=== PATIENT | female | born 1935 | race Caucasian/White ===

== ENCOUNTER → 2016-07-17 | Outpatient (CLI) | payer MEDICARE, OTHER ==
--- NOTE | 2016-07-17 10:20 | USB ---
Reason for exam: clinical finding. Indicated problem(s): difficult physical exam in both breasts. Bloody discharge in the left breast. Physical Findings: Nurse Summary: nipple discharge right breast x 6 weeks, clear, scant, noted-small amount dried bloody discharge on bandaid covering nipple (dw). US Breast BILAT Right breast ultrasound including all four quadrants, the retroareolar region and axilla demonstrates a 0.6 x 0.8 x 0.4cm irregular, solid, hypoechoic lesion at 12 o'clock for which a biopsy is recommended and a 0.5 x 0.9 x 0.3cm irregular, solid, hypoechoic lesion at 4 o'clock for which a biopsy is recommended. Left breast ultrasound including all four quadrants, the retroareolar region and axilla demonstrates a 0.5 x 0.5 x 0.3cm oval, cystic lesion at 9 o'clock. These results were verbally communicated with the patient and result sheet given to the patient on 07/17/16. ASSESSMENT: Suspicious, BI-RAD 4 RECOMMENDATION: Ultrasound core biopsy of the right breast. Called Dr. Hopkins with mammographic findings and Rizwana stated to schedule procedure. Biopsy scheduled for 07/30/16 at 1:30. PRELIMINARY REPORT CALLED AND FAXED TO DR. HOPKINS ON 07/17/16 AT 300/TP.
== END ==
LOC: RADUSWWP 08:05
PROVIDERS: ATTEND Surgery
DX: N64.52 Nipple discharge (principal)

== ENCOUNTER → 2016-07-30 | Day surgery (SDC) | payer MEDICARE, OTHER ==
[~2016-07-30] MED LIST: BACITRACIN OINT 1 EACH PACKET TOPICAL ONE; SODIUM BICARB 4% 5 ML VIAL (0.48 MEQ/ML) ONE
--- NOTE | 2016-07-30 14:49 | USB ---
Ultrasound-guided core biopsy of 2 right-sided breast lesions CLINICAL HISTORY: 12:00 and 4:00 right breast nodules requested for biopsy. FINDINGS: The procedure was discussed with the patient. The risks, complications, benefits , and alternatives were discussed and any questions were answered. Informed consent was obtained. The patient was placed supine on the ultrasound table and prepped and draped in the usual sterile fashion. All elements of maximal barrier and sterile technique were utilized. Under ultrasound guidance, access into the 12:00 lesion was obtained, and 4 passes were performed. Surgical clip was placed post procedure. Subsequently, 4 passes were made into the 4:00 lesion. Surgical clip was placed post procedure. The patient was stable throughout the procedure and remained stable upon discharge from Department of Radiology. IMPRESSION: 1. Successful core biopsy of a 12:00 and 4:00 right breast nodule as requested. Pathology pending. Pathology Results: Malignant A. BREAST, RIGHT, SITE A TWELVE O'CLOCK, CORE BIOPSY: INVASIVE MAMMARY CARCINOMA WITH MUCINOUS FEATURES. SEE SURGICAL PATHOLOGY CANCER CASE SUMMARY. B. BREAST, RIGHT SITE B FOUR O'CLOCK, CORE BIOPSY: DUCTAL CARCINOMA IN SITU ( DCIS), CANNOT COMPLETELY EXCLUDE MICROINVASION. SEE SURGICAL PATHOLOGY CANCER CASE SUMMARY. Recommendation Surgical consult of the right breast. [facility]
== END ==
LOC: RADUSWWP 12:56
PROVIDERS: ATTEND Surgery
DX: C50.911 Malignant neoplasm of unspecified site of right female breast (principal); D05.11 Intraductal carcinoma in situ of right breast; Z88.0 Allergy status to penicillin
CPT/HCPCS: 88305; 88342; 88341; 19083; 19084; A4648

== ENCOUNTER → 2016-09-15 | Outpatient (CLI) | payer MEDICARE, OTHER ==
--- NOTE | 2016-09-15 12:13 | XR ---
EXAMINATION TYPE: XR chest 2V DATE OF EXAM: 09/15/2016 12:08 PM COMPARISON: None HISTORY: Shortness of breath TECHNIQUE: Frontal and lateral views of the chest are obtained. FINDINGS: Scattered senescent parenchymal changes noted. Hyperinflation compatible with COPD. No evidence for infiltrate. No evidence for atelectasis. Calcified hilar mediastinal lymph nodes. Chr onic elevation left hemidiaphragm. Heart size is stable. Mediastinal structures are stable and grossly unremarkable. No evidence for hilar prominence. Degenerative changes dorsal spine. IMPRESSION: 1. No evidence for acute pulmonary disease.
== END | disposition home or self-care (01) ==
LOC: RADXRMAIN 11:40
PROVIDERS: ATTEND Internal Medicine Critical Care Medicine
DX: R06.00 Dyspnea, unspecified (principal)
CPT/HCPCS: 71020; 94060; 99205

== ENCOUNTER 2016-10-10 14:48 | Emergency (ER) | payer MEDICARE, OTHER ==
[2016-10-10] MEDS: HYDROmorphone 1 MG/ML 1 ML SYRINGE IVP STA ×2 (16:00→18:19)
--- NOTE | 2016-10-10 16:13 | ED ---
General Adult HPI - General Chief complaint: Extremity Injury, Lower Stated complaint: Fall Time Seen by Provider: 10/10/16 15:04 Source: patient, family, EMS, RN notes reviewed Mode of arrival: EMS Limitations: physical limitation - History of Present Illness Initial comments: Patient is a pleasant 81-year-old female with history of polio and leg weakness and decreased sensation. Patient fell off of her wheelchair prior to arrival. Patient's legs slipped behind her. Patient complains of discomfort near the region of both of her knees. Patient does not ambulate. Patient denies any head injury or loss of consciousness. No neck or back pain. No chest pain or dyspnea. Patient does chronically use BiPAP secondary to the history of polio. - Related Data Home Medications Medication Instructions Recorded Confirmed Acetaminophen Tab [Tylenol Tab] 1,000 mg PO Q6HR PRN 10/08/16 10/10/16 Amitriptyline HCl [Elavil] 10 mg PO QAM 10/08/16 10/10/16 Amitriptyline HCl [Elavil] 30 mg PO HS 10/08/16 10/10/16 Ascorbic Acid [Vitamin C] 500 mg PO DAILY 10/08/16 10/10/16 Biotin 5 mg PO DAILY 10/08/16 10/10/16 Cholecalciferol [Vitamin D3] 1,000 unit PO DAILY 10/08/16 10/10/16 Quinapril HCl [Accupril] 20 mg PO DAILY@1200 10/08/16 10/10/16 Ursodiol 300 mg PO BID 10/08/16 10/10/16 metroNIDAZOLE 0.75% CREAM 1 applic TOPICAL BID 10/08/16 10/10/16 [Metrocream] traZODone HCL 50 mg PO HS 10/08/16 10/10/16 PARoxetine HCL [Paxil] 40 mg PO DAILY 10/10/16 10/10/16 Allergies Allergy/AdvReac Type Severity Reaction Status Date / Time Penicillins Allergy Swelling Verified 10/10/16 15:45 Review of Systems ROS Statement: Those systems with pertinent positive or pertinent negative responses have been documented in the HPI. ROS Other: All systems not noted in ROS Statement are negative. Constitutional: Denies: fever Eyes: Denies: eye pain ENT: Denies: ear pain Respiratory: Denies: cough Cardiovascular: Denies: chest pain Endocrine: Denies: fatigue Gastrointestinal: Denies: abdominal pain Genitourinary: Denies: dysuria Musculoskeletal: Denies: back pain Skin: Denies: rash Neurological: Denies: headache Past Medical History Past Medical History: Cancer, Hypertension, Skin Disorder, Sleep Apnea/CPAP/ BIPAP Additional Past Medical History / Comment(s): Rt breast CA,has Post Polio Syndrome Unexpected Midlife Symptoms (overwhelmed fatigue,severe muscle weakness ,muscle and jt pain,sleep disorder,cold intolerance,difficulty swallowing and breathing)-pt has card, elizabeth lift-needs someone to support head when using elizabeth lift,quadriplegia-able to use right hand, hold glass with straw and feed self,uses bipap setting 20-uses 18hrs per day,gallstones,incontinent of urine- likes to use own bed [place]-takes 2 people for turning,rosacea,had polio at age 18 and put on iron lung History of Any Multi-Drug Resistant Organisms: None Reported Past Surgical History: Hernia Repair, Tonsillectomy Additional Past Surgical History / Comment(s): ramon cataracts. elizabeth lift assist. [place] bound Additional Past Anesthesia/Blood Transfusion Reaction / Comment(s): SEE POST POLIO SYNDROME IDENTIFICATION CARD ANESTHESIA PRECAUTIONS,Pt states seen Anesthesiologist for current procedure September 2016states"Anesthesiologist stated will give local anesthesia but there is a limit to how much local anesthesia can be given and if I need some additional for pain I will be given a light anesthesia".no hx blood transfusion Past Psychological History: Anxiety, Depression Smoking Status: Never smoker Past Alcohol Use History: None Reported Past Drug Use History: None Reported - Past Family History Mother Family Medical History: Cancer Additional Family Medical History / Comment(s): breast and uterus Father Family Medical History: Cancer Additional Family Medical History / Comment(s): brain General Exam Limitations: physical limitation General appearance: alert, in no apparent distress Head exam: Present: atraumatic Eye exam: Present: normal appearance, PERRL ENT exam: Present: normal oropharynx Neck exam: Present: normal inspection. Absent: tenderness Respiratory exam: Present: normal lung sounds bilaterally Cardiovascular Exam: Present: regular rate, normal rhythm Expanded Peripheral pulses: 2+: Dorsalis Pedis (R), Dorsalis Pedis (L) GI/Abdominal exam: Present: soft. Absent: tenderness Extremities exam: Present: tenderness (Patient does have some tenderness of the right lateral ankle and right proximal tib-fib. Patient also has some tenderness left distal femur and left proximal tib-fib.), other (Exam limited. Patient has chronic decreased sensation. Patient is able to move her toes however has chronic weakness.) Back exam: Present: normal inspection Neurological exam: Present: alert, oriented X3, CN II-XII intact Psychiatric exam: Present: normal affect, normal mood Skin exam: Present: normal color Course Vital Signs 10/10/16 10/10/16 15:00 18:00 Temperature 97.4 F L Pulse Rate 108 H 120 H Respiratory 20 20 Rate Blood Pressure 153/83 144/73 O2 Sat by Pulse 92 L 92 L Oximetry - Reevaluation(s) Reevaluation #1: 10/10/16 18:50 Case was earlier discussed [facility] who will consult for Dr. Peters. Case discussed with Dr. Lynn, who will admit for medical call. Chest did call back from [facility] and stated that Dr. Peters requests transfer. Dr. Lynn is made aware. 10/10/16 18:[address] Marie at [facility] who will call back after discussing with his orthopedic trauma physician. 10/10/16 19:22 Case was discussed again with Dr. Marie a [facility], who will accept transfer. Medical Decision Making - Radiology Data Radiology results: image reviewed (Bilateral femur x-ray shows a subtrochanteric fracture of the right proximal femur. Distal left femur fracture. Bilateral tib-fib x-rays show bilateral proximal tib-fib fractures. There is also distal right tibia fracture. Cannot rule out distal right fibula fracture.) Disposition Clinical Impression: Multiple fractures of lower leg, closed Disposition: OTHER INSTITUTION NOT DEFINED Condition: Serious Referrals: Zackary Lynn MD [Primary Care Provider] - 1-2 days Time of Disposition: 19:23 - Out of Hospital Transfer - Req. Specs Out of Hospital Transfer - Requested Specifics: Other Emergency Center
--- NOTE | 2016-10-10 18:00 | XR ---
EXAMINATION TYPE: XR tibia fibula bilateral DATE OF EXAM: 10/10/2016 5:41 PM COMPARISON: NONE HISTORY: Leg pain TECHNIQUE: 4 views FINDINGS: There are transverse fractures of the proximal tibia and fibula bilaterally. There is no di slocation. There is osteopenia. There is also transverse fracture of the distal right tibia with slight impaction. There is no disloc ation. IMPRESSION: Bilateral transverse fractures of the proximal tibia and fibula. Acute transverse fractur e distal right tibia. There is probably also nondisplaced fracture distal right fibula. Osteopenia.
--- NOTE | 2016-10-10 18:01 | XR ---
EXAMINATION TYPE: XR femur bilateral DATE OF EXAM: 10/10/2016 5:41 PM COMPARISON: NONE HISTORY: Pain TECHNIQUE: 6 views FINDINGS: There is a subtrochanteric transverse fracture of the proximal right femur. There is genera lized osteopenia. There is a nondisplaced supracondylar fracture of the distal left femur. There is n o dislocation. There is a 2 cm infarct involving the distal right femur. IMPRESSION: Bilateral femoral fractures as above. No dislocation. Osteopenia.
[2016-10-10 19:44] VITALS: BP 123/69; PULSE 69; RESP 16; TEMP 97
[2016-10-10] MEDS ORDERED: HYDROmorphone 1 MG/ML 1 ML SYRINGE IVP STA (20:13)
== END 2016-10-10 20:31 | disposition other institution (70) ==
LOC: EC 14:48
DX: S72.21XA Displaced subtrochanteric fracture of right femur, initial encounter for closed fracture (principal); S82.301A Unspecified fracture of lower end of right tibia, initial encounter for closed fracture; S82.102A Unspecified fracture of upper end of left tibia, initial encounter for closed fracture; S82.101A Unspecified fracture of upper end of right tibia, initial encounter for closed fracture; S82.832A Other fracture of upper and lower end of left fibula, initial encounter for closed fracture; S82.831A Other fracture of upper and lower end of right fibula, initial encounter for closed fracture; I10 Essential (primary) hypertension; G47.30 Sleep apnea, unspecified; G82.50 Quadriplegia, unspecified; F32.9 Major depressive disorder, single episode, unspecified; F41.9 Anxiety disorder, unspecified; Z85.3 Personal history of malignant neoplasm of breast; Z79.899 Other long term (current) drug therapy; Z88.0 Allergy status to penicillin; W05.0XXA Fall from non-moving wheelchair, initial encounter
CPT/HCPCS: 73590; 73552; 99285; 96374; 96376; J1170